=== PATIENT | female | born 1955 | race Caucasian/White ===

== ENCOUNTER 2022-07-10 13:45 | Outpatient (CLI) | payer MEDICARE, SELFPAY ==
--- NOTE | ~2022-07-10 | MR_ITS ---
EXAMINATION: MR brain/brain stem wo con DATE: 07/10/2022 14:32 INDICATION: Eye pain and pressure. Headache. TECHNIQUE: Magnetic resonance imaging (MRI) of the brain and brainstem was performed without intraven ous contrast. COMPARISON: None. FINDINGS: There are scattered areas of nonspecific increased T2-weighted signal intensity in the cere bral and cerebellar white matter. There is no intracranial hemorrhage, acute infarction, or abnormal intracranial mass lesion. The ventricles are normal in size. The orbits are normal. The mastoid air c ells are normal. There is mild mucosal thickening in the ethmoid sinuses. IMPRESSION: 1. Mild nonspecific cerebral and cerebellar white matter disease, which likely represents chronic sma ll vessel ischemic disease. Reviewed, dictated and finalized at location A. IMPRESSION: 1. Mild nonspecific cerebral and cerebellar white matter disease, which likely represents chronic small vessel ischemic disease.
== END 2022-07-10 13:46 | disposition home or self-care (01) ==
LOC: ANHIMG 13:56
PROVIDERS: PCP Family Medicine; Visit Provider Family Medicine
DX: G44.059 Short lasting unilateral neuralgiform headache with conjunctival injection and tearing (SUNCT), not intractable (principal); R90.82 White matter disease, unspecified
CPT/HCPCS: 70551

== ENCOUNTER 2024-11-25 07:41 | Outpatient (CLI) | payer MEDICARE, SELFPAY ==
--- OUTSIDE RECORDS SUMMARY | 2024-11-25 07:48 | XMS_ITS | Continuity of Care Document ---
Author Organization [facility] Address [address] [place] [address] [address] [place] [address] Phone Care Team Providers Care Patient Relations Manager Name Role Phone Liang Mina MD Unavailable Unavailable Allergies, Adverse Reactions, Alerts Substance Reaction Status Criticality codeine Active No Information Procedures Procedure Date OFFICE/OUTPATIENT VISIT, [facility] Advance Directives Directive Yes / No Effective Date File Name No Information Encounters Encounter Description Practice Location Reason(s) For Visit Diagnoses Date Provider Providers Copied on Encounter OFFICE/OUTPAT IENT VISIT, [facility], [id number] [place], [place] [address], [place], [place], [id number], [phone] [facility] pressure in eye (chief complaint) Meibomian gland dysfunction (MGD) of both eyesNuclear sclerotic cataract of both eyesPVD (posterior vitreous detachment), both eyes 1 Leopoldo Tavera. [address] [place] [address], [facility], . [phone] Referring Provider: Liang Mina, [address] [facility], [place], [place], [facility]. tel:[phone] Family History Family Member Type Diagnosis Age At Onset Father Problem Glaucoma Father Problem Cataracts Payers Payer name Insurance type Covered libertarian ID Authoriza tion(s) MEDICARE OF [place] MB [id number] AETNA SENIOR SUPPLEMENT INS CI [id number] Social History Type Description Quantity Date Captured Comments Alcohol Use Details 1 drink occasionally Caffeine Use Details Unknown Tobacco Use Status Current non-smoker Smoking Status Never smoker Non-Smoking Tobacco Use Details : No Details Available : No Details Available Sex Female Chief Complaint And Reason For Visit From encounter dated '10/01/2021 12:00'. pressure in eye (chief complaint). Description: The 66 year old female presents for evaluation of pressure in eye in the right eye. It started about 2 year(s) ago. The onset was right eye. The symptom is frequent. pressure in the eye and then sore to touch at times Describes vision as different, not blurry, its hard to describe Has seen Laura and retina in past for this issue, no rx other than OTC AT which didn't help. Plan Of Treatment Date Type Action Status No Information History Of Present Illness Encounter Date Complaint History Of Prese nt Illness pressure in eye The 66 year old female presents for evaluation of pressure in eye in the right eye. It started about 2 year(s) ago. The onset was right eye. The symptom is frequent. pressure in the eye and then sore to touch at times Describes vision as different, not blurry, its hard to describe Has seen Laura and retina in past for this issue, no rx other than OTC AT which didn't help. Instructions Date Instruction Additional Infor india Impression/Plan Related to Meibo stephen gland dysfunction (MGD) of both eyes Impression/Plan Related to Nucle ar sclerotic cataract of both eyes Impression/Plan Related to PVD ( posterior vitreous detachment), both eyes Assessments Type Assessment Date assessment Meibomian gland dysfunction (MGD ) of both eyes assessment Nuclear sclerotic cataract of monster th eyes assessment PVD (posterior vitreous detachme nt), both eyes impression Meibomian gland dysfunction (MGD ) of both eyes: H02.883 impression Nuclear sclerotic cataract of monster th eyes: H25.13 impression PVD (posterior vitreous detachme nt), both eyes: H43.813
--- OUTSIDE RECORDS SUMMARY | 2024-11-25 07:48 | XMS_ITS | Referral Summary ---
Author Organization [facility] Address [address] [place] [address] Care Team Providers Care Denture Packer Name Role Phone Unknown, Notinfile Primary Care Provider Unavail able Unknown, Notinfile Unavailable Unavailable Allergies Active Allergy Reactions Criticality Noted Date Comments Codeine Rash Medium 10/01/2021 Medications No known medications Active Problems Problem Noted Date Diagnosed Date Vitreous syneresis of both eyes 03/25/2023 Assessment & Plan (03/25/2023 8:29 AM CDT): No retinal holes/tears/detachments noted in either eye. Educated on findings, monitor. Presbyopia 03/19/2023 Assessment & Plan (03/19/2023 2:57 PM CDT): Pt's symptoms consistent with eyestrain and presbyopia being uncorrected. Educated on findings an recommended FT spectacle wear. Will schedule f/u in 2 mo for symptoms check. If relieved with specs, can cancel f/u appt. 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 Gender Identity Not on file Sexual Orientation Not on file Last Filed Vital Signs Vital Sign Reading Time Taken Comments Blood Pressure 113/75 09/29/2017 7:13 AM TRUCK ENGINE TECHNICIAN Pulse 67 09/29/2017 7:13 AM TRUCK ENGINE TECHNICIAN Temperature - - Respiratory Rate - - Oxygen Saturation - - Inhaled Oxygen Concentration - - Weight 51.7 kg (114 lb) 09/29/2017 7:13 AM TRUCK ENGINE TECHNICIAN Height 160 cm (5' 3 ) 09/29/2017 7:13 AM TRUCK ENGINE TECHNICIAN Body Mass Index 20.19 09/29/2017 7:13 AM TRUCK ENGINE TECHNICIAN Plan of Treatment Not on file Insurance [facility] AETNA SIGNATURE MEDICARE Care Teams Denture Packer Relationship Specialty Start Date End Date Unknown, Notinfile PCP - General 05/20/17 Unknown, Notinfile 05/20/17
--- OUTSIDE RECORDS SUMMARY | 2024-11-25 07:48 | XMS_ITS | Clinical Summary ---
Author Organization [facility] Address [address] [place] [address] Care Team Providers Care Make Up Operator Name Role Phone Unknown, Notinfile Primary Care [...] relieved with specs, can cancel f/u appt. 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 Gender Identity Not on file Sexual Orientation Not on file Obstetrics History Last Filed Vital Signs Vital Sign Reading Time Taken Comments Blood Pressure 113/75 09/29/2017 7:13 AM TABLE WORKER Pulse 67 09/29/2017 7:13 AM TABLE WORKER Temperature - - Respiratory Rate - - Oxygen Saturation - - Inhaled Oxygen Concentration - - Weight 51.7 kg (114 lb) 09/29/2017 7:13 AM TABLE WORKER Height 160 cm (5' 3 ) 09/29/2017 7:13 AM TABLE WORKER Body Mass Index 20.19 09/29/2017 7:13 AM TABLE WORKER Plan of Treatment Health Maintenance Due Date Last Done Comments Breast Cancer Screening-Mammogram 1955 Colon Cancer Screening-Colonoscopy 1955 Depression Screening 1955 Fall Risk Assessment 1955 Hepatitis C Screening 1955 Osteoporosis Screening-Bone Density Scan 1955 DTaP/Tdap/Td Vaccine (1 - Tdap) 1966 Hepatitis B Screening 1973 Zoster Vaccine (1 of 2) 2005 Pneumococcal vaccine 65+ (1 of 1 - PCV) 02/07/2020 Well Visit 65+ 02/07/2020 Influenza Vaccine (#1) 2024 Insurance AETNA [facility] [place] [address] Care Teams Make Up Operator Relationship Specialty Start Date End Date Unknown, Notinfile PCP - General 05/20/17 Unknown, Notinfile 05/20/17
--- OUTSIDE RECORDS SUMMARY | 2024-11-25 07:48 | XMS_ITS | Continuity of Care Document ---
Author Organization [facility] Address [address] [place] [address] [place] [address] Phone Care Team Providers Care Sterile Supervisor Name Role Phone Nicho Silva MD Unavailable Unavailable Allergies, Adverse Reactions, Alerts Substance Reaction Status Criticality No Known Allergies Active No Inform ation Medications Medication Instructions Dosage Effective Dates (start - stop) Status Comments Vitamins and Minerals tablet - Active Procedures Procedure Date No Charge Optomap Fundus Photos 021 No Charge Refraction No Charge Orbscan Office/outpatient Visit, New Advance Directives Directive Yes / No Effective Date File Name No Information Encounters Encounter Description Practice Location Reason(s) For Visit Diagnoses Date Provider Providers Copied on Encounter Office/outpa tient Visit, [facility], [address] [place] [address] [address], [place], [place], [id number], tel:[phone] [facility] Professional flashes (chief complaint) Vitreous degeneration, right eyeAge-related nuclear cataract, bilateralCorne al scar, right eyeRPE mottling of maculaMeibomia n gland dysfunction (MGD) of both eyesDry eye syndrome of right lacrimal gland 1 Ricardo Torre. [address] [facility] [address], [place], [place], [id number], [place]. tel:[phone] Referring Provider: Colton Tineo, [address] [facility], [place], [address]. tel:[phone] [facility], [address], [place], [place], [id number], [place] tel:[phone] SEC Juan Pablo Gonzalez No Information Ricardo Torre. [address] [facility], [address], [place], [place], [address], [place]. tel:[phone] Family History Family Member Type Diagnosis Age At Onset Problem Family history of glaucoma Payers Payer name Insurance type Covered alliance party ID Authoriza tion(s) [place] [id number] Aetna Mdcr Supp CI [id number] Social History Type Description Quantity Date Captured Comments Alcohol Use Details Caffeine Use Details Tobacco Use Status Current non-smoker 21 Smoking Status Never smoker Non-Smoking Tobacco Use Details : No Details Available : No Details Available Sex Female Chief Complaint And Reason For Visit From encounter dated '03/16/2021 14:00'. flashes (chief complaint). Description: The 66 year old female presents for evaluation of flashes in the right eye. Patient states over the last 2 years she has had flashes in the right temporal corner of right that is shaped like a cresset image. Patient denies any floaters and eyes are very dry. Patient eyes are very dry and uses an ART tears prn OU. Patient had Parotid gland removed and was told her that her eyes will be dry. Patient has had pain x 6 months in the right. Reason For Referral Reason For Referral No Information Plan Of Treatment Date Type Action Status Patient Education Learning About Vitreous Detachment completed History Of Present Illness Encounter Date Complaint History Of Prese nt Illness flashes The 66 year old female presents for evaluation of flashes in the right eye. Patient states over the last 2 years she has had flashes in the right temporal corner of right that is shaped like a cresset image. Patient denies any floaters and eyes are very dry. Patient eyes are very dry and uses an ART tears prn OU. Patient had Parotid gland removed and was told her that her eyes will be dry. Patient has had pain x 6 months in the right. Functional Status Date Functional Assessmen t No Information Instructions Date Instruction Additional Infor india Impression/Plan Assessments Type Assessment Date assessment Vitreous degeneration, right eye assessment Age-related nuclear cataract, bi lateral assessment Corneal scar, right eye 021 assessment RPE mottling of macula assessment Meibomian gland dysfunction (MGD ) of both eyes assessment Dry eye syndrome of right lacrim al gland Patient Care Teams Name Effective Dates (start - stop) Status Members No Information
--- OUTSIDE RECORDS SUMMARY | 2024-11-25 07:48 | XMS_ITS | Patient Health Summary ---
Author Organization [facility] Address [address] [place] [address] Care Team Providers Care Immunologist Name Role Phone Unavailable Primary Care Provider Unavailabl e Note from [facility],non-owned Affiliates and Associated Physician Practices is amultiple site organization consisting of ambulatory clinics and hospital sitesin [place], [place], [place] and [place]. This disclosure is being madepursuant to the Care Everywhere program and may not contain all information available regarding this patient. Last updated 18.[facility] Social History Tobacco Use Types Packs/Day Years Used Date Smoking Tobacco: Never Assessed Sex and Gender Information Value Date Recorded Sex Assigned at Female 10/24/2024 9:40 AM MANDARIN TUTOR Gender Identity Female 10/24/2024 9:40 AM MANDARIN TUTOR Sexual Orientation Straight 10/24/2024 9: 40 AM MANDARIN TUTOR Last Filed Vital Signs Vital Sign Reading Time Taken Comments Blood Pressure - - Pulse - - Temperature - - Respiratory Rate - - Oxygen Saturation - - Inhaled Oxygen Concentration - - Weight 52.2 kg (115 lb) 10/29/2024 10:49 AM MANDARIN TUTOR Height 157.5 cm (5' 2 ) 10/29/2024 10:49 AM MANDARIN TUTOR Body Mass Index 21.03 10/29/2024 10:49 AM MANDARIN TUTOR Procedures * MAMMO BILAT IMPLANT SCREEN W ARCHIE(Performed 10/29/2024) Performed for Visit for screening mammogram Results * Mammo Bilat Implant Screen W Archie (10/29/2024 10:42 AM MANDARIN TUTOR) Anatomical Region Laterality Modality Breast Bilateral Mammography 11/11/2024 11:4 2 AM MANDARIN TUTOR Impressions 11/11/2024 12:26 PM MANDARIN TUTOR IMPRESSION: 1. No mammographic evidence of malignancy in either breast. 2. Grossly intact bilateral subglandular silicone implants with dense breast parenchyma. RECOMMENDATION: 1. Screening mammography in one year, pending no interval breast concerns. 2. By the NCCN guidelines and family history of breast cancer, consideration of genetic testing is recommended, if not already performed. Patient will receive the examination results by lay letter. OVERALL ASSESSMENT: BI-RADS CATEGORY 2: BENIGN. Report dictated by Jarrell Olivo M.D. (compensation vice president). I, Eleanor Freeman DO have personally reviewed and interpreted this examination/study. > Interpreting Provider: Eleanor Freeman DO on 11/11/2024 12:26 PM Narrative 11/11/2024 12:26 PM MANDARIN TUTOR EXAMINATIONS: BILATERAL DIGITAL SCREENING MAMMOGRAM WITH IMPLANTS AND BILATERAL BREAST TOMOSYNTHESIS LOCATION: [facility] EXAM DATE: 10/29/2024 HISTORY: Screening. History of breast augmentation. Family history of breast cancer diagnosed in a maternal aunt at age 50. RISK ASSESSMENT CALCULATION: Patient completed a breast cancer risk assessment during her appointment 10/29/2024. Based upon the information she provided and her mammographic breast density, her lifetime risk of developing breast cancer is 7 % (Average Risk <15%; Intermediate / Moderate Risk 15-19; High Risk > 20%). Risk assessment based upon the BRCAPRO model. By the NCCN guidelines and family history of breast cancer, consideration of genetic testing is recommended, if not already performed. COMPARISON: Comparison is made to prior mammograms 01/20/2019 and 02/27/2016 from [facility] in [place], [place]. TECHNIQUE: Bilateral synthetic 2-D digital mammogram images and bilateral digital breast tomosynthesis (3D) were obtained and reviewed in the craniocaudal and mediolateral oblique projections with the breast implants displaced. Bilateral craniocaudal and mediolateral oblique conventional full field digital images were also obtained to include the bilateral breast implants. . A total of 10 images obtained. Transpara AI was utilized in the interpretation. BREAST PARENCHYMAL COMPOSITION: Category C: The breasts are heterogeneously dense which may obscure small masses. FINDINGS: There are subglandular silicone breast implants, which limit evaluation of the breast parenchyma. There are no suspicious findings or evidence of malignancy on mammography. There is a stable benign intramammary lymph node in the lower inner right breast, best seen on the conventional and implant displaced CC views. Ana Isbell MD MAMMO ORDERABLES
--- OUTSIDE RECORDS SUMMARY | 2024-11-25 07:48 | XMS_ITS | Clinical Summary ---
Author Organization [facility] Address [address] [place] [address] Care Team Providers Care President Ceo & Founder Name Role Phone Unavailable Primary Care Provider Unavailabl e Source Comments [facility],non-owned Affiliates and Associated Physician Practices is amultiple site organization consisting of ambulatory clinics and hospital sitesin [place], [place] and [place]. This disclosure is being madepursuant to the Care Everywhere program and may not contain all information available regarding this patient. Last updated 18.[facility] Encounters Date Type Department Care Team Description 10/29/2024 8:46 AM NC MACHINIST - 10/29/2024 11:59 PM NC MACHINIST Hospital Encounter [address] [id number] Unknown, Provider Discharge Disposition: Home or Self Care from Last 3 Months Family History Medical History Relation Name Comments Cancer - Breast Maternal Aunt Relation Name Status Comments Maternal Aunt Social History Tobacco Use Types Packs/Day Years Used Date Smoking Tobacco: Never Assessed Sex and Gender Information Value Date Recorded Sex Assigned at Female 10/24/2024 9:40 AM NC MACHINIST Gender Identity Female 10/24/2024 9:40 AM NC MACHINIST Sexual Orientation Straight 10/24/2024 9: 40 AM NC MACHINIST Last Filed Vital Signs Vital Sign Reading Time Taken Comments Blood Pressure - - Pulse - - Temperature - - Respiratory Rate - - Oxygen Saturation - - Inhaled Oxygen Concentration - - Weight 52.2 kg (115 lb) 10/29/2024 10:49 AM NC MACHINIST Height 157.5 cm (5' 2 ) 10/29/2024 10:49 AM NC MACHINIST Body Mass Index 21.03 10/29/2024 10:49 AM NC MACHINIST Plan of Treatment Health Maintenance Due Date Last Done Comments BONE DENSITY TESTING 1955 COLOGUARD (AGES 45-75) - COL ON CA SCREENING 1955 COLON MONITORING 1955 COLONOSCOPY - COLON CA SCREENING 1955 CT COLONOGRAPHY - COLON CA SCREENING 1955 Colorectal Cancer Screening 1955 FIT - COLON CA SCREENING 1955 FLEX SIG - COLON CA SCREENING 1955 LIPID TESTING 1955 HEPATITIS C SCREENING 02/01/1973 DTAP/TDAP/TD VACCINES (1 - Tdap) 1974 PNEUMOCOCCAL VACCINE 50+ (1 of 1 - PCV) 2005 ZOSTER VACCINE (1 of 2) 2005 COVID-19 VACCINE (1 - 2023-2 5 season) 2024 INFLUENZA VACCINE (#1) 2024 DEPRESSION SCREENING 10/20/2024 MEDICARE AWV CALENDAR YEAR 2024 MAMMOGRAM 10/29/2026 10/29/2024 Respiratory Syncytial Virus (RSV) Vaccine Pt: or over 60 yrs (1 - 1-dose 75+ series) 2030 HEPATITIS B VACCINE Aged Out No longe r eligible based on patient's age to complete this topic HIB VACCINE Aged Out No longer eligi ble based on patient's age to complete this topic HPV VACCINE Aged Out No longer eligi ble based on patient's age to complete this topic MENINGOCOCCAL (Group B) VACCINE Aged Out No longer eligible based on patient's age to complete this topic MENINGOCOCCAL VACCINE Aged Out No howie yevgeniy eligible based on patient's age to complete this topic Procedures Procedure Name Priority Date/Time Associated Diagnosis Comments MAMMO BILAT IMPLANT SCREEN W ARCHIE Routine 10/29/2024 10:42 AM NC MACHINIST Visit for screening mammogram from Last 3 Months Results * Mammo Bilat Implant Screen W Archie (10/29/2024 10:42 AM NC MACHINIST) Anatomical Region Laterality Modality Breast Bilateral Mammography 11/11/2024 11:4 2 AM NC MACHINIST Impressions 11/11/2024 12:26 PM NC MACHINIST IMPRESSION: 1. No mammographic evidence of malignancy [...] BENIGN. Report dictated by Jarrell Olivo M.D. (logistics vice president). I, Eleanor Freeman DO have personally reviewed and interpreted this examination/study. > Interpreting Provider: Eleanor Freeman DO on 11/11/2024 12:26 PM Narrative 11/11/2024 12:26 PM NC MACHINIST EXAMINATIONS: BILATERAL DIGITAL SCREENING MAMMOGRAM WITH IMPLANTS AND BILATERAL BREAST TOMOSYNTHESIS LOCATION: [facility] EXAM DATE: 10/29/2024 HISTORY: Screening. History of [...] to prior mammograms 01/20/2019 and 02/27/2016 from [facility] in [place], [place]. TECHNIQUE: Bilateral synthetic 2-D digital mammogram [...] CC views. Ana Isbell MD MAMMO ORDERABLES from Last 3 Months Valentine Lau I Personal/Famil y Self 1955
--- OUTSIDE RECORDS SUMMARY | 2024-11-25 07:48 | XMS_ITS | Referral Summary ---
Author Organization [facility] Address [address] [place] [address] Care Team Providers Care Rubber Tire And Tubes Supervisor Name Role Phone Unavailable Primary Care Provider Unavailabl e Source Comments [facility],non-owned Affiliates and Associated Physician Practices is amultiple site organization consisting of ambulatory clinics and hospital sitesin [place], [place], [place] and [place]. This disclosure is being madepursuant to the Care Everywhere program and may not contain all information available regarding this patient. Last updated 18.[facility] Encounters Date Type Department Care Team Description 10/29/2024 8:46 AM ZIGZAGGER - 10/29/2024 11:59 PM ZIGZAGGER Hospital Encounter [address] [phone] Unknown, Provider Discharge Disposition: Home or Self Care from Last 3 Months Social History Tobacco Use Types Packs/Day Years Used Date Smoking Tobacco: Never Assessed Sex and Gender Information Value Date Recorded Sex Assigned at Female 10/24/2024 9:40 AM ZIGZAGGER Gender Identity Female 10/24/2024 9:40 AM ZIGZAGGER Sexual Orientation Straight 10/24/2024 9: 40 AM ZIGZAGGER Last Filed Vital Signs Vital Sign Reading Time Taken Comments Blood Pressure - - Pulse - - Temperature - - Respiratory Rate - - Oxygen Saturation - - Inhaled Oxygen Concentration - - Weight 52.2 kg (115 lb) 10/29/2024 10:49 AM ZIGZAGGER Height 157.5 cm (5' 2 ) 10/29/2024 10:49 AM ZIGZAGGER Body Mass Index 21.03 10/29/2024 10:49 AM ZIGZAGGER Plan of Treatment Not on file Procedures Procedure Name Priority Date/Time Associated Diagnosis Comments MAMMO BILAT IMPLANT SCREEN W ARCHIE Routine 10/29/2024 10:42 AM ZIGZAGGER Visit for screening mammogram from Last 3 Months Results * Mammo Bilat Implant Screen W Archie (10/29/2024 10:42 AM ZIGZAGGER) Anatomical Region Laterality Modality Breast Bilateral Mammography 11/11/2024 11:4 2 AM ZIGZAGGER Impressions 11/11/2024 12:26 PM ZIGZAGGER IMPRESSION: 1. No mammographic evidence of malignancy [...] BENIGN. Report dictated by Jarrell Olivo M.D. (vice president). IEleanor DO have personally reviewed and interpreted this examination/study. > Interpreting Provider: Eleanor Freeman DO on 11/11/2024 12:26 PM Narrative 11/11/2024 12:26 PM ZIGZAGGER EXAMINATIONS: BILATERAL DIGITAL SCREENING MAMMOGRAM WITH IMPLANTS AND BILATERAL BREAST TOMOSYNTHESIS LOCATION: [facility] EXAM DATE: 10/29/2024 HISTORY: Screening. History of [...] to prior mammograms 01/20/2019 and 02/27/2016 from [facility] in [place], [place]. TECHNIQUE: Bilateral synthetic 2-D digital mammogram [...] MD MAMMO ORDERABLES from Last 3 Months Dom MéndezValentine Gonzalo Personal/Famil y Self 1955
[2024-11-25 08:17] LABS: Basophils Percent Auto 0.8 % (0.2-1.2); Eosinophils Absolute Auto 0.1 K/mm3 (0-0.3); Eosinophils Percent Auto 2.8 % (0-4.4); Hematocrit 41.3 % (37.0-47.0); Hemoglobin 13.5 g/dL (12.0-15.0); Immature Granulocyte Absolute 0.01 K/mm3 (0.00-0.031); Immature Granulocyte Percent A 0.3 % (0-0.5); Lymphocytes Absolute Auto 1.23 K/mm3 (0.9-3.2); Lymphocytes Percent Auto 31.1 % (18.3-44.2); Mean Corpuscular HGB Conc 32.7 g/dl (32-36); Mean Corpuscular Hemoglobin 30.9 pg (26-34); Mean Corpuscular Volume 94.5 fl (80-100); Mean Platelet Volume 10.2 fl (7.4-10.4); Monocytes Absolute Auto 0.5 K/mm3 (0.1-0.6); Monocytes Percent Auto 12.7 % (2.6-8.5); Neutrophils Absolute Auto 2.1 K/mm3 (1.3-6.7); Neutrophils Percent Auto 52.3 % (45.5-73.1); Platelet Count Result 160 k/mm3 (150-375); Red Blood Count 4.37 M/mm3 (4.2-5.4)
[2024-11-25 08:23] LABS: Alanine Aminotransferase 20 U/L (6-35); Albumin Level 4.1 g/dL (3.5-5.1); Alkaline Phosphatase 52 U/L (38-126); Anion Gap 8 mmol/L (4-12); Aspartate Amino Transferase 27 U/L (14-36); Bilirubin,Total 0.6 mg/dL (0.2-1.3); Blood Urea Nitrogen 19 mg/dL (7-17); Calcium 9.2 mg/dL (8.4-10.2); Carbon Dioxide 29 mmol/L (22-30); Chloride 103 mmol/L (98-107); Cholesterol 208 mg/dL (0-200); Estimated Glomerular Filt Rate > 60; Glucose 89 mg/dL (65-110); HDL Direct 79 mg/dL; Potassium 4.6 mmol/L (3.4-5.0); Sodium 140 mmol/L (137-145); Triglycerides 47 mg/dL (<150)
[2024-11-25 08:34] LABS: LDL Cholesterol Direct 116 mg/dL
== END 2024-11-25 07:42 | disposition home or self-care (01) ==
PROVIDERS: PCP Family Medicine; Visit Provider Student in an Organized Health Care Education/Training Program
DX: E55.9 Vitamin D deficiency, unspecified (principal); E53.8 Deficiency of other specified B group vitamins; E78.5 Hyperlipidemia, unspecified
CPT/HCPCS: 36415; 80053; 80061; 82607; 82652; 85025

== ENCOUNTER 2024-12-10 07:27 | Outpatient (CLI) | payer MEDICARE, SELFPAY ==
--- OUTSIDE RECORDS SUMMARY | 2024-12-10 07:32 | XMS_ITS | Continuity of Care Document ---
Author Organization [facility] Address [address] [place] [address] [place] [address] Phone Care Team Providers Care Deckhand Oyster Dredge Name Role Phone Nicho Silva MD Unavailable [...] Copied on Encounter Office/outpa tient Visit, [facility], [address] [place] [address] [address], [place], [place], [id number], tel:[phone] [facility] Professional flashes (chief complaint) Vitreous degeneration, right eyeAge-related nuclear cataract, bilateralCorne al scar, right eyeRPE mottling of maculaMeibomia n gland dysfunction (MGD) of both eyesDry eye syndrome of right lacrimal gland 1 Ricardo Torre. [address] [facility] [address], [place], [place], [id number], [place]. tel:[phone] Referring Provider: Colton Tineo, [address] [facility], [place], [address]. tel:[phone] [facility], [address], [place], [place], [id number], [place] tel:[phone] SEC Juan Pablo Gonzalez No Information Ricardo Torre. [address] [facility], [address], [place], [place], [address], [place]. tel:[phone] Family History Family Member Type Diagnosis Age At Onset Problem Family history of glaucoma Payers Payer name Insurance type Covered constitution party ID Authoriza tion(s) [place] MB [id number] Aetna Mdcr Supp CI [id number] Social History Type Description Quantity Date Captured [...]
--- OUTSIDE RECORDS SUMMARY | 2024-12-10 07:32 | XMS_ITS | Patient Health Summary ---
Author Organization [facility] [employer] Address [address] [place] [address] Care Team Providers Care Strand Galvanizer Name Role Phone Unavailable Primary Care Provider Unavailabl e Note from [facility],non-owned Affiliates and Associated Physician Practices is amultiple site organization consisting of ambulatory clinics and hospital sitesin [place], [place], [place] and [place]. This disclosure is being madepursuant to the Care Everywhere program and may not contain all information available regarding this patient. Last updated 18.[facility] [employer] Social History Tobacco Use Types Packs/Day Years Used Date Smoking Tobacco: Never Assessed Sex and Gender Information Value Date Recorded Sex Assigned at Female 10/24/2024 9:40 AM TRACK SURFACING MACHINE OPERATOR Gender Identity Female 10/24/2024 9:40 AM TRACK SURFACING MACHINE OPERATOR Sexual Orientation Straight 10/24/2024 9: 40 AM TRACK SURFACING MACHINE OPERATOR Last Filed Vital Signs Vital Sign Reading Time Taken Comments Blood Pressure - - Pulse - - Temperature - - Respiratory Rate - - Oxygen Saturation - - Inhaled Oxygen Concentration - - Weight 52.2 kg (115 lb) 10/29/2024 10:49 AM TRACK SURFACING MACHINE OPERATOR Height 157.5 cm (5' 2 ) 10/29/2024 10:49 AM TRACK SURFACING MACHINE OPERATOR Body Mass Index 21.03 10/29/2024 10:49 AM TRACK SURFACING MACHINE OPERATOR Procedures * MAMMO BILAT IMPLANT SCREEN W ARCHIE(Performed 10/29/2024) Performed for Visit for screening mammogram Results * Mammo Bilat Implant Screen W Archie (10/29/2024 10:42 AM TRACK SURFACING MACHINE OPERATOR) Anatomical Region Laterality Modality Breast Bilateral Mammography 11/11/2024 11:4 2 AM TRACK SURFACING MACHINE OPERATOR Impressions 11/11/2024 12:26 PM TRACK SURFACING MACHINE OPERATOR IMPRESSION: 1. No mammographic evidence of malignancy [...] BENIGN. Report dictated by Jarrell Olivo M.D. (president + publisher). I, Eleanor Freeman DO have personally reviewed and interpreted this examination/study. > Interpreting Provider: Eleanor Freeman DO on 11/11/2024 12:26 PM Narrative 11/11/2024 12:26 PM TRACK SURFACING MACHINE OPERATOR EXAMINATIONS: BILATERAL DIGITAL SCREENING MAMMOGRAM WITH IMPLANTS AND BILATERAL BREAST TOMOSYNTHESIS LOCATION: [facility] EXAM DATE: 10/29/2024 HISTORY: Screening. [...] to prior mammograms 01/20/2019 and 02/27/2016 from [facility] in [place], [place]. TECHNIQUE: Bilateral synthetic 2-D digital mammogram [...]
--- OUTSIDE RECORDS SUMMARY | 2024-12-10 07:32 | XMS_ITS | Referral Summary ---
Author Organization [facility] Address [address] [facility] [place] [address] Care Team Providers Care Runner Out Name Role Phone Unavailable Primary Care Provider Unavailabl e Source Comments [facility],non-owned Affiliates and Associated Physician Practices is amultiple site organization consisting of ambulatory clinics and hospital sitesin [place], [place], [place] and [place]. This disclosure is being madepursuant to the Care Everywhere program and may not contain all information available regarding this patient. Last updated 18.[facility] Encounters Date Type Department Care Team Description 10/29/2024 8:46 AM LABORATORY COORDINATOR - 10/29/2024 11:59 PM LABORATORY COORDINATOR Hospital Encounter [address] [phone] Unknown, Provider Discharge Disposition: Home or Self Care from Last 3 Months Social History Tobacco Use Types Packs/Day Years Used Date Smoking Tobacco: Never Assessed Sex and Gender Information Value Date Recorded Sex Assigned at Female 10/24/2024 9:40 AM LABORATORY COORDINATOR Gender Identity Female 10/24/2024 9:40 AM LABORATORY COORDINATOR Sexual Orientation Straight 10/24/2024 9: 40 AM LABORATORY COORDINATOR Last Filed Vital Signs Vital Sign Reading Time Taken Comments Blood Pressure - - Pulse - - Temperature - - Respiratory Rate - - Oxygen Saturation - - Inhaled Oxygen Concentration - - Weight 52.2 kg (115 lb) 10/29/2024 10:49 AM LABORATORY COORDINATOR Height 157.5 cm (5' 2 ) 10/29/2024 10:49 AM LABORATORY COORDINATOR Body Mass Index 21.03 10/29/2024 10:49 AM LABORATORY COORDINATOR Plan of Treatment Not on file Procedures Procedure Name Priority Date/Time Associated Diagnosis Comments MAMMO BILAT IMPLANT SCREEN W ARCHIE Routine 10/29/2024 10:42 AM LABORATORY COORDINATOR Visit for screening mammogram from Last 3 Months Results * Mammo Bilat Implant Screen W Archie (10/29/2024 10:42 AM LABORATORY COORDINATOR) Anatomical Region Laterality Modality Breast Bilateral Mammography 11/11/2024 11:4 2 AM LABORATORY COORDINATOR Impressions 11/11/2024 12:26 PM LABORATORY COORDINATOR IMPRESSION: 1. No mammographic evidence of malignancy [...] BENIGN. Report dictated by Jarrell Olivo M.D. (resident services director). IEleanor DO have personally reviewed and interpreted this examination/study. > Interpreting Provider: Eleanor Freeman DO on 11/11/2024 12:26 PM Narrative 11/11/2024 12:26 PM LABORATORY COORDINATOR EXAMINATIONS: BILATERAL DIGITAL SCREENING MAMMOGRAM WITH IMPLANTS AND BILATERAL BREAST TOMOSYNTHESIS LOCATION: [facility] EXAM DATE: 10/29/2024 HISTORY: Screening. History of [...] to prior mammograms 01/20/2019 and 02/27/2016 from [facility] in [place], [place]. TECHNIQUE: Bilateral synthetic 2-D digital mammogram [...]
--- OUTSIDE RECORDS SUMMARY | 2024-12-10 07:32 | XMS_ITS | Clinical Summary ---
Author Organization [facility] Address [address] [place] [address] Care Team Providers Care Gate Keeper Name Role Phone Unavailable Primary Care Provider Unavailabl e Source Comments [facility],non-owned Affiliates and Associated Physician Practices is amultiple site organization consisting of ambulatory clinics and hospital sitesin [place] and [place]. This disclosure is being madepursuant to the Care Everywhere program and may not contain all information available regarding this patient. Last updated 18.[facility] Encounters Date Type Department Care Team Description 10/29/2024 8:46 AM PARKING GARAGE MANAGER - 10/29/2024 11:59 PM PARKING GARAGE MANAGER Hospital Encounter [address] [address] Unknown, Provider Discharge Disposition: Home or Self Care from Last 3 Months Family History Medical History Relation Name Comments Cancer - Breast Maternal Aunt Relation Name Status Comments Maternal Aunt Social History Tobacco Use Types Packs/Day Years Used Date Smoking Tobacco: Never Assessed Sex and Gender Information Value Date Recorded Sex Assigned at Female 10/24/2024 9:40 AM PARKING GARAGE MANAGER Gender Identity Female 10/24/2024 9:40 AM PARKING GARAGE MANAGER Sexual Orientation Straight 10/24/2024 9: 40 AM PARKING GARAGE MANAGER Last Filed Vital Signs Vital Sign Reading Time Taken Comments Blood Pressure - - Pulse - - Temperature - - Respiratory Rate - - Oxygen Saturation - - Inhaled Oxygen Concentration - - Weight 52.2 kg (115 lb) 10/29/2024 10:49 AM PARKING GARAGE MANAGER Height 157.5 cm (5' 2 ) 10/29/2024 10:49 AM PARKING GARAGE MANAGER Body Mass Index 21.03 10/29/2024 10:49 AM PARKING GARAGE MANAGER Plan of Treatment Health Maintenance Due Date [...] SCREEN W ARCHIE Routine 10/29/2024 10:42 AM PARKING GARAGE MANAGER Visit for screening mammogram from Last 3 Months Results * Mammo Bilat Implant Screen W Archie (10/29/2024 10:42 AM PARKING GARAGE MANAGER) Anatomical Region Laterality Modality Breast Bilateral Mammography 11/11/2024 11:4 2 AM PARKING GARAGE MANAGER Impressions 11/11/2024 12:26 PM PARKING GARAGE MANAGER IMPRESSION: 1. No mammographic evidence of malignancy [...] Report dictated by Jarrell Olivo M.D. (president & ceo). I, Eleanor Freeman DO have personally reviewed and interpreted this examination/study. > Interpreting Provider: Eleanor Freeman DO on 11/11/2024 12:26 PM Narrative 11/11/2024 12:26 PM PARKING GARAGE MANAGER EXAMINATIONS: BILATERAL DIGITAL SCREENING MAMMOGRAM WITH IMPLANTS AND BILATERAL BREAST TOMOSYNTHESIS LOCATION: [facility] EXAM DATE: 10/29/2024 HISTORY: Screening. History of [...] to prior mammograms 01/20/2019 and 02/27/2016 from [facility] in [place], [place]. TECHNIQUE: Bilateral synthetic 2-D digital mammogram [...]
--- OUTSIDE RECORDS SUMMARY | 2024-12-10 07:32 | XMS_ITS | Continuity of Care Document ---
Author Organization [facility] Address [address] [place] [address] [address] [place] [address] Phone Care Team Providers Care Vp Talent Management Name Role Phone Liang Mina MD Unavailable Unavailable Allergies, Adverse Reactions, Alerts Substance Reaction Status Criticality codeine Active No Information Procedures Procedure Date OFFICE/OUTPATIENT VISIT, [facility] Advance Directives Directive Yes / No Effective Date File Name No Information Encounters Encounter Description Practice Location Reason(s) For Visit Diagnoses Date Provider Providers Copied on Encounter OFFICE/OUTPAT IENT VISIT, [facility], [id number] [place], [place] [address] [address], [place], [place], [id number], [phone] [facility] pressure in eye (chief complaint) Meibomian gland dysfunction (MGD) of both eyesNuclear sclerotic cataract of both eyesPVD (posterior vitreous detachment), both eyes 1 Leopoldo Tavera. [address] [place] [address], [facility], . tel:[phone] Referring Provider: Liang Mina, [address] [facility], [place], [place], [facility]. tel:[phone] Family History Family Member Type Diagnosis Age At Onset Father Problem Glaucoma Father Problem Cataracts Payers Payer name Insurance type Covered republican ID Authoriza tion(s) [place] MB [id number] AETNA SENIOR SUPPLEMENT INS CI [id number] Social History Type Description Quantity Date Captured [...]
--- OUTSIDE RECORDS SUMMARY | 2024-12-10 07:33 | XMS_ITS | Clinical Summary ---
Author Organization [facility] Address [address] [place] [address] Care Team Providers Care Bailing Machine Operator Name Role Phone Unknown, Notinfile Primary [...] on file Legal Sex Female 7:09 PM BLEND TECHNICIAN Gender Identity Not on file Sexual Orientation Not on file Obstetrics History Last Filed Vital Signs Vital Sign Reading Time Taken Comments Blood Pressure 113/75 09/29/2017 7:13 AM BLEND TECHNICIAN Pulse 67 09/29/2017 7:13 AM BLEND TECHNICIAN Temperature - - Respiratory Rate - - Oxygen Saturation - - Inhaled Oxygen Concentration - - Weight 51.7 kg (114 lb) 09/29/2017 7:13 AM BLEND TECHNICIAN Height 160 cm (5' 3 ) 09/29/2017 7:13 AM BLEND TECHNICIAN Body Mass Index 20.19 09/29/2017 7:13 AM BLEND TECHNICIAN Plan of Treatment Health Maintenance Due Date [...] 02/07/2020 Influenza Vaccine (#1) 2024 Insurance AETNA [facility] MEDICARE Care Teams Bailing Machine Operator Relationship Specialty Start Date End Date Unknown, Notinfile PCP - General 05/20/17 Unknown, Notinfile 05/20/17
--- OUTSIDE RECORDS SUMMARY | 2024-12-10 07:33 | XMS_ITS | Referral Summary ---
Author Organization [facility] Address [address] [place] [address] Care Team Providers Care Technology Coach Name Role Phone Unknown, Notinfile Primary Care [...] on file Legal Sex Female 7:09 PM [employer] Gender Identity Not on file Sexual Orientation Not on file Last Filed Vital Signs Vital Sign Reading Time Taken Comments Blood Pressure 113/75 09/29/2017 7:13 AM [employer] INTER[employer] Pulse 67 09/29/2017 7:13 AM [employer] HE[employer] INTER[employer]IP Temperature - - Respiratory Rate - - Oxygen Saturation - - Inhaled Oxygen Concentration - - Weight 51.7 kg (114 lb) 09/29/2017 7:13 AM [employer] INTER[employer] Height 160 cm (5' 3 ) 09/29/2017 7:13 AM [employer] HE[employer] INTERNS[employer]IP Body Mass Index 20.19 09/29/2017 7:13 AM PUBLIC HEALTH INTERNSHIP Plan of Treatment Not on file Insurance [facility] AETNA SIGNATURE MEDICARE Care Teams Technology Coach Relationship Specialty Start Date End Date Unknown, Notinfile PCP - General 05/20/17 Unknown, Notinfile 05/20/17
[2024-12-16 15:18] LABS: Vitamin D 1,25 (OH)2 Total 27 pg/mL (18-72); Vitamin D2 1,25 (OH)2 <8 pg/mL; Vitamin D3 1,25 (OH)2 27 pg/mL
== END 2024-12-10 07:28 | disposition home or self-care (01) ==
PROVIDERS: PCP Family Medicine; Visit Provider Physician Assistant
DX: E55.9 Vitamin D deficiency, unspecified (principal)
CPT/HCPCS: 36415; 82652

== ENCOUNTER 2025-01-24 07:57 | Outpatient (CLI) | payer MEDICARE, SELFPAY ==
--- NOTE | ~2025-01-24 | DEXA_ITS ---
Bone Density Report Name: CHRISTIANO HENNING I Age: 69 Sex: Female Ethnicity: White Date of : 1955 Indication: postmenopausal; screening for osteoporosis; prior fracture; Referring Provider: OSORIO JONAS Study: Bone densitometry was performed. Exam Date: January 24, 2025 Accession number: [id number] Bone Density: Region BMD T-score Z-score Classification AP Spine(L1-L4) 0.894 -1.4 0.7 Osteopenia Femoral Neck (Left) 0.614 -2.1 -0.3 Osteopenia Total Hip (Left) 0.838 -0.8 0.6 Normal Femoral Neck (Right) 0.623 -2.0 -0.2 Osteopenia Total Hip (Right) 0.833 -0.9 0.6 Normal Total Hip Mean 0.836 -0.9 0.6 Normal World Health Organization criteria for BMD impression classify patients as: Normal (T-score at or above -1.0), Osteopenia (T-score between -1.0 and -2.5), or Osteoporosis (T-score at or below -2.5). 10-year Fracture Risk(1): Major Osteoporotic Fracture 17% Hip Fracture 3.4% Reported Risk Factors: [place] (), Neck BMD=0.614, BMI=20.7, previous fracture (1) FRAX(R) Version 3.08. Fracture probability calculated for an untreated patient. Fracture probability may be lower if the patient has received treatment. Clinical Information Provided by Patient: Has had a low trauma fracture Patient maximum height was 63.0 Menopause Age: 52 No regular weight bearing exercise Does not regularly consume dairy products Drinks caffeinated beverages Onset of menses at age 16 Number of children 2 Impression: The patient has low bone mass, based on the Left Femoral Neck T-score. The patient has an estimated ten-year risk of hip fracture of 3.4% and an estimated ten-year risk of major fracture of 17%, based on the WHO FRAX algorithm. The patient has risk factors, including: previous fracture. Discussion: BONE DENSITY IS LOW AT ONE OR MORE SKELETAL SITES. THE PATIENT'S BMD AND CLINICAL RISK FACTORS CONTRIBUTE TO THIS PATIENT'S INCREASED RISK OF FRACTURE. This patient's lowest T-score is low at one or more skeletal sites. It meets the World Health Organization's (WHO) criteria for ?low bone mass? (T-score between -1.0 and -2.5). The patient's 10-year risk of hip fracture as calculated by FRAX exceeds the threshold where pharmacological therapy is recommended by the National Osteoporosis Foundation (NOF). However, all treatment decisions require clinical judgment and consideration of individual patient factors, including patient preferences, comorbidities, previous drug use, risk factors not captured in the FRAX model (e.g., frailty, falls, vitamin D deficiency, increased bone turnover, interval significant decline in bone density) and possible under or overestimation of fracture risk by FRAX. The patient should follow a healthful lifestyle (good nutrition with adequate calcium and vitamin D, and appropriate weight-bearing exercise). Follow-Up: Consider a repeat BMD and Vertebral Fracture Assessment (VFA) exam in 2 years or sooner if medically necessary, to reassess this patient's status. Reported by: AUGIE on 01/24/2025 8:37:00 AM. Reviewed, dictated and finalized at location [facility]
--- OUTSIDE RECORDS SUMMARY | 2025-01-24 08:09 | XMS_ITS | Continuity of Care Document ---
Author Organization [facility] Address [address] [place] [address] [place] [address] Phone Care Team Providers Care Senior Drafter Name Role Phone Nicho Silva MD Unavailable [...] Copied on Encounter Office/outpa tient Visit, [facility], [address] [place] [address] [address], [place], [place], [id number], tel:[phone] [facility] Professional flashes (chief complaint) Vitreous degeneration, right eyeAge-related nuclear cataract, bilateralCorne al scar, right eyeRPE mottling of maculaMeibomia n gland dysfunction (MGD) of both eyesDry eye syndrome of right lacrimal gland 1 Ricardo Torre. [address] [facility] [address], [place], [place], [address], [place]. tel:[phone] Referring Provider: Colton Tineo, [address] [facility], [place], [address]. tel:[phone] [facility], [address], [place], [place], [address], [place] tel:[phone] SEC Juan Pablo Gonzalez No Information Ricardo Torre. [address] [facility], [address], [place], [place], [address], [place]. tel:[phone] Family History Family Member Type Diagnosis Age At Onset Problem Family history of glaucoma Payers Payer name Insurance type Covered constitution party ID Authoriza tion(s) [place] MB [id number] Aetna Mdcr Supp CI [id number] Social History Type Description Quantity Date Captured [...]
--- OUTSIDE RECORDS SUMMARY | 2025-01-24 08:09 | XMS_ITS | Continuity of Care Document ---
Author Organization [facility] Address [address] [place] [address] [address] [place] [address] Phone Care Team Providers Care Shipping Hand Name Role Phone Liang Mina MD Unavailable Unavailable Allergies, Adverse Reactions, Alerts Substance Reaction Status Criticality codeine Active No Information Procedures Procedure Date OFFICE/OUTPATIENT VISIT, [facility] Advance Directives Directive Yes / No Effective Date File Name No Information Encounters Encounter Description Practice Location Reason(s) For Visit Diagnoses Date Provider Providers Copied on Encounter OFFICE/OUTPAT IENT VISIT, [facility], [address] [place], [place] [address], [place], [place], [address], [phone] [facility] pressure in eye (chief complaint) Meibomian gland dysfunction (MGD) of both eyesNuclear sclerotic cataract of both eyesPVD (posterior vitreous detachment), both eyes 1 Leopoldo Tavera. [address] [place] [address], [facility], . tel:[phone] Referring Provider: Liang Mina, [address] [facility], [place], [place], [facility]. tel:[phone] Family History Family Member Type Diagnosis Age At Onset Father Problem glaucoma Father Problem cataract Payers Payer name Insurance type Covered republican ID Authoriza tion(s) [place] MB [id number] AETNA SENIOR SUPPLEMENT INS CI [id number] Social History Type Description Quantity Date Captured [...] other than OTC AT which didn't help. Reason For Referral Reason For Referral No Information History Of Present Illness Encounter [...] other than OTC AT which didn't help. Functional Status Date Functional Assessmen t No Information Instructions Date Instruction Additional Infor india Impression/Plan Related to Meibo stephen gland dysfunction (MGD) of both eyes Impression/Plan Related to Nucle ar sclerotic cataract of both eyes Impression/Plan Related to PVD ( posterior vitreous detachment), both eyes Assessments Type Assessment Date assessment Meibomian gland dysfunction (MGD ) of both eyes assessment Nuclear sclerotic cataract of omnster th eyes assessment PVD (posterior vitreous detachme nt), both eyes impression Meibomian gland dysfunction (MGD ) of both eyes: H02.883 impression Nuclear sclerotic cataract of monster th eyes: H25.13 impression PVD (posterior vitreous detachme nt), both eyes: H43.813 Patient Care Teams Name Effective Dates (start - stop) Status Members No Information
--- OUTSIDE RECORDS SUMMARY | 2025-01-24 08:09 | XMS_ITS | Clinical Summary ---
Author Organization [facility] Address [address] [facility] [place] [address] Care Team Providers Care Field Radio Operator Name Role Phone Unavailable Primary Care Provider Unavailabl e Source Comments [facility],non-owned Affiliates and Associated Physician Practices is amultiple site organization consisting of ambulatory clinics and hospital sitesin [place], [place], [place] and [place]. This disclosure is being madepursuant to the Care Everywhere program and may not contain all information available regarding this patient. Last updated 18.[facility] Encounters Date Type Department Care Team Description 10/29/2024 8:46 AM SHOT BAGGER - 10/29/2024 11:59 PM SHOT BAGGER Hospital Encounter [address] [address] Unknown, Provider Discharge Disposition: Home or Self Care from Last 3 Months Family History Medical History Relation Name Comments Cancer - Breast Maternal Aunt Relation Name Status Comments Maternal Aunt Social History Tobacco Use Types Packs/Day Years Used Date Smoking Tobacco: Never Assessed Sex and Gender Information Value Date Recorded Sex Assigned at Female 10/24/2024 9:40 AM SHOT BAGGER Gender Identity Female 10/24/2024 9:40 AM SHOT BAGGER Sexual Orientation Straight 10/24/2024 9: 40 AM SHOT BAGGER Last Filed Vital Signs Vital Sign Reading Time Taken Comments Blood Pressure - - Pulse - - Temperature - - Respiratory Rate - - Oxygen Saturation - - Inhaled Oxygen Concentration - - Weight 52.2 kg (115 lb) 10/29/2024 10:49 AM SHOT BAGGER Height 157.5 cm (5' 2 ) 10/29/2024 10:49 AM SHOT BAGGER Body Mass Index 21.03 10/29/2024 10:49 AM SHOT BAGGER Plan of Treatment Health Maintenance Due Date [...] to complete this topic MENINGOCOCCAL (Group B) VACC INE SHARED DECISION-MAKING Aged Out No longer eligibl e based on patient's age to complete this topic MENINGOCOCCAL GROUPS A/C/Y/W VACCINE Aged Out No longer eligible b ased on patient's age to complete this topic Procedures Procedure Name Priority Date/Time Associated Diagnosis Comments MAMMO BILAT IMPLANT SCREEN W ARCHIE Routine 10/29/2024 10:42 AM SHOT BAGGER Visit for screening mammogram from Last 3 Months Results * Mammo Bilat Implant Screen W Archie (10/29/2024 10:42 AM SHOT BAGGER) Anatomical Region Laterality Modality Breast Bilateral Mammography 11/11/2024 11:4 2 AM SHOT BAGGER Impressions 11/11/2024 12:26 PM SHOT BAGGER IMPRESSION: 1. No mammographic evidence of malignancy [...] BENIGN. Report dictated by Jarrell Olivo M.D. (global consumer sector vice president). I, Eleanor Freeman DO have personally reviewed and interpreted this examination/study. > Interpreting Provider: Eleanor Freeman DO on 11/11/2024 12:26 PM Narrative 11/11/2024 12:26 PM SHOT BAGGER EXAMINATIONS: BILATERAL DIGITAL SCREENING MAMMOGRAM WITH IMPLANTS AND BILATERAL BREAST TOMOSYNTHESIS LOCATION: [facility] EXAM DATE: 10/29/2024 HISTORY: [...] to prior mammograms 01/20/2019 and 02/27/2016 from [facility] in [place], [place]. TECHNIQUE: Bilateral synthetic 2-D digital mammogram [...]
--- OUTSIDE RECORDS SUMMARY | 2025-01-24 08:09 | XMS_ITS | Clinical Summary ---
Author Organization [facility] Address [address] [place] [address] Care Team Providers Care Surgical Sales Representative Name Role Phone Unknown, Notinfile Primary Care [...] on file Legal Sex Female 7:09 PM DRILL SETUP OPERATOR Gender Identity Not on file Sexual Orientation Not on file Obstetrics History Last Filed Vital Signs Vital Sign Reading Time Taken Comments Blood Pressure 113/75 09/29/2017 7:13 AM DRILL SETUP OPERATOR Pulse 67 09/29/2017 7:13 AM DRILL SETUP OPERATOR Temperature - - Respiratory Rate - - Oxygen Saturation - - Inhaled Oxygen Concentration - - Weight 51.7 kg (114 lb) 09/29/2017 7:13 AM DRILL SETUP OPERATOR Height 160 cm (5' 3 ) 09/29/2017 7:13 AM DRILL SETUP OPERATOR Body Mass Index 20.19 09/29/2017 7:13 AM DRILL SETUP OPERATOR Plan of Treatment Health Maintenance Due Date Last Done Comments Breast Cancer Screening-Mammogram 1955 Colon Cancer Screening-Colonoscopy 1955 Depression Screening 1955 Fall Risk Assessment 1955 Hepatitis C Screening 1955 Osteoporosis Screening-Bone Density Scan 1955 DTaP/Tdap/Td Vaccine (1 - Tdap) 1966 Hepatitis B Screening 1973 Pneumococcal vaccine 65+ (1 of 1 - PCV) 2005 Zoster Vaccine (1 of 2) 2005 Well Visit 65+ 02/07/2020 Influenza Vaccine (#1) 2024 Insurance AETNA [facility] MEDICARE Care Teams Surgical Sales Representative Relationship Specialty Start Date End Date Unknown, Notinfile PCP - General 05/20/17 Unknown, Notinfile 05/20/17
--- OUTSIDE RECORDS SUMMARY | 2025-01-24 08:09 | XMS_ITS | Referral Summary ---
Author Organization [facility] Address [address] [place] [address] Care Team Providers Care Pinball Machine Repairer Name Role Phone Unknown, Notinfile Primary Care [...] on file Legal Sex Female 7:09 PM GLASS CUTTER Gender Identity Not on file Sexual Orientation Not on file Last Filed Vital Signs Vital Sign Reading Time Taken Comments Blood Pressure 113/75 09/29/2017 7:13 AM GLASS CUTTER Pulse 67 09/29/2017 7:13 AM GLASS CUTTER Temperature - - Respiratory Rate - - Oxygen Saturation - - Inhaled Oxygen Concentration - - Weight 51.7 kg (114 lb) 09/29/2017 7:13 AM GLASS CUTTER Height 160 cm (5' 3 ) 09/29/2017 7:13 AM GLASS CUTTER Body Mass Index 20.19 09/29/2017 7:13 AM GLASS CUTTER Plan of Treatment Not on file Insurance [facility] AETNA SIGNATURE MEDICARE Care Teams Pinball Machine Repairer Relationship Specialty Start Date End Date Unknown, Notinfile PCP - General 05/20/17 Unknown, Notinfile 05/20/17
== END 2025-01-24 07:58 | disposition home or self-care (01) ==
LOC: ANHIMG 08:01
PROVIDERS: PCP Family Medicine; Visit Provider Student in an Organized Health Care Education/Training Program
DX: M85.89 Other specified disorders of bone density and structure, multiple sites (principal); Z78.0 Asymptomatic menopausal state
CPT/HCPCS: 77080